=== PATIENT | female | born 1990 | race Caucasian/White ===

== ENCOUNTER 2016-12-10 18:51 | Outpatient (CLI) | payer MEDICAID ==
[~2016-12-10] VITALS: Ht 157.5 cm; Wt 65.7 kg
[~2016-12-10 18:51] MED LIST: ALBU8.5H3 INH; D-ME118S6 PO; PRED20TA PO
[2016-12-10 19:39] VITALS: BP 107/65; PULSE 78; RESP 18
[2016-12-10 19:51] LABS: ADD UMIC YES; URINE BILIRUBIN (Dip) NEGATIVE (NEGATIVE); URINE BLOOD (Dip) NEGATIVE (NEGATIVE); URINE COLOR LT. YELLOW (YELLOW); URINE GLUCOSE (Dip) NEGATIVE (NEGATIVE); URINE KETONES (Dip) TRACE (NEGATIVE); URINE LEUKOCYTE ESTERASE (Dip) TRACE (NEGATIVE); URINE NITRITE (Dip) NEGATIVE (NEGATIVE); URINE TOTAL PROTEIN (Dip) NEGATIVE (NEGATIVE); URINE UROBILINOGEN (Dip) 0.2 E.U./dL (0.1-1.0)
[2016-12-10] MEDS ORDERED: PRENAT PO (19:51)
[2016-12-10 20:00] LABS: SQUAMOUS EPITHELIAL CELL,UR FEW; URINE RBCS 0-2 /HPF (0)
[2016-12-10 20:02] LABS: BACTERIA,URINE OCCASIONAL
[2016-12-10 21:11] LABS: ADD SCAN DIFF NO
[2016-12-10 21:13] LABS: BASOPHIL # 0.1 10^3/ul (0.0-0.1); BASOPHILS % 0.5 % (0.0-2.0); EOSINOPHILS # 0.3 10^3/ul (0.0-0.5); EOSINOPHILS % 2.6 % (0.0-7.0); HEMATOCRIT 34.9 % (37.0-47.0); HEMOGLOBIN 11.8 g/dl (12.0-16.0); LYMPHOCYTES # 2.3 10^3/ul (0.8-2.9); MEAN CORPUSCULAR HEMOGLOBIN 33.1 pg (29.0-33.0); MEAN CORPUSCULAR HGB CONC 33.8 g/dl (32.0-37.0); MEAN PLATELET VOLUME 9.8 fl (7.4-10.4); NEUTROPHIL # 9.1 10^3/ul (1.6-7.5); NEUTROPHILS % 70.5 % (39.0-77.0); PLATELET COUNT 263 10^3/UL (140-415); RED BLOOD COUNT 3.56 10^6/ul (4.20-5.40); RED CELL DISTRIBUTION WIDTH 12.8 % (11.5-14.5); WHITE BLOOD COUNT 12.9 10^3/ul (4.8-10.8)
[2016-12-10 21:27] LABS: ALBUMIN 3.5 g/dl (3.3-4.9); ALBUMIN/GLOBULIN RATIO 1.02; BILIRUBIN,INDIRECT 0.1 mg/dl (0-1.1); BILIRUBIN,TOTAL 0.1 mg/dl (0.2-1.3); CALCIUM 9.5 mg/dl (8.4-10.2); CREATININE 0.48 mg/dl (0.44-1.00); POTASSIUM 3.4 mmol/L (3.5-5.1); TOTAL PROTEIN 6.9 g/dl (6.1-8.1)
--- NOTE | 2016-12-10 21:42 | RADRPT ---
PROCEDURE: US Abdomen. CLINICAL INDICATION: abdominal pain TECHNIQUE: Multiple real-time images were acquired of the patient's right upper quadrant abdomen a nd retroperitoneum utilizing a high resolution transducer. COMPARISON: None FINDINGS: The liver demonstrates normal echogenicity. The liver is normal in size and no focal solid lesions are seen. The liver measures 16.9 cm in length. The portal vein is patent with normal direction of f low. No intrahepatic biliary dilatation is seen. The gallbladder is contracted. No gallstones are identified within the gallbladder. There is no pe richolecystic fluid or gallbladder wall thickening. The common bile duct measures 3 mm in maximal di mension. The visualized portions of the pancreas are unremarkable. The tail of the pancreas is not seen. No free fluid is identified. The right kidney is normal in size, and demonstrate normal echogenicity and cortical thickness. The right kidney measures 11.5 cm in long dimension. There is mild right-sided hydronephrosis. There a re no kidney stones. RPTAT: AA IMPRESSION: Mild right-sided hydronephrosis. Contracted gallbladder with no evidence of gallstones. .Juan Chu MD, MD Date Time Electronically viewed and signed by .Juan Chu MD, MD on 12/10/2016 21:42 .S/
--- NOTE | 2016-12-10 21:48 | RADRPT ---
PROCEDURE: US OB. CLINICAL INDICATION: Low MILTON , pain TECHNIQUE: Transabdominal views of the pelvis are available for review. COMPARISON: No prior studies are available for comparison. FINDINGS: There is a single intrauterine gestation in a vertex position. The heart rate is noted at 137 bpm. The placenta is anterior. The MILTON measures 16.5 cm. RPTAT: AA IMPRESSION: Normal MILTON. .Juan Chu MD, MD Date Time Electronically viewed and signed by .Juan Chu MD, on 12/10/2016 21:48 .S/
--- NOTE | 2016-12-10 22:27 | RADRPT ---
PROCEDURE: US OB limited. Cervical length CLINICAL INDICATION: pain TECHNIQUE: transvaginal views of the pelvis are available for review. COMPARISON: No prior studies are available for comparison. FINDINGS: The cervical length is measured at 4.2 cm. There is minimal fluid within the upper cervical canal, measuring 2 mm. There is otherwise no significant dilation or funneling identified. IMPRESSION: Cervical length measuring 4.2 cm. Trace fluid within the cervical canal, 2 mm. RPTAT: HBST .Michael Evans MD, Date Time Electronically viewed and signed by .Michael Evans MD, on 12/10/2016 22:27 .T/
--- NOTE | 2016-12-11 01:10 | QN ---
Documentation Comment Laborist Dr Garcia's pt 26 y.o. Ect1 with an IUP at 31w5d c/o right upper quadrant pain x 1 day. Pt reports this same pain off and on since she was 5 months . She says she told the provider at the clinic but she has never had an US and was never told not to eat fatty foods. She had a quesadilla in the late afternoon before coming in. No N/V. PMHx: asthma. PSHx: ectopic . POBHx: x 1. NKDA. BP 107/65 T=97.6 Cervical length 4.1cm. MILTON 16.5 VTX. RUQ US: GB was contracted so was difficult to visualize but no gallstones noted. No GB wall thickening and the CBD was normal. WBC 12.9 Hgb 11.8 ALT/AST 22/17 Amylase/Lipase 112/133 U/A negative. NST: baseline 140 bpm with accels to 180 bpm. No decels. No UC's. The pain resolved on it's own after resting and not eating x 5 hours. A: IUP at 31w 5d. RUQ pain. P: D/C pt home. Has an appt at the clinic 12/12. Reviewed the dietary restrictions with pain related to the GB and the importance of a fat-free or low fat diet to minimize GB activity.May benefit from a repeat US after a period of fasting. P: GILLIAN THOMAS MD December 11, 2016 01:09
== END 2016-12-11 01:03 | disposition home or self-care (01) ==
LOC: OBT 18:51 → L-D 18:52 → OBT 12-11 01:03
PROVIDERS: ATTEND Obstetrics & Gynecology
DX: O26.893 Other specified pregnancy related conditions, third trimester (principal); R10.11 Right upper quadrant pain; Z3A.31 31 weeks gestation of pregnancy
CPT/HCPCS: 36415; 76705; 76815; 76817; 80053; 81001; 82150; 83690; 85025; Z7500; 81003; G0463

== ENCOUNTER 2017-02-04 17:14 | Outpatient (CLI) | payer MEDICAID ==
[~2017-02-04] VITALS: Ht 152.4 cm; Wt 67.8 kg
[~2017-02-04 17:14] MED LIST changes: -ALBU8.5H3 INH; -D-ME118S6 PO; -PRED20TA PO; +PRENAT PO
[2017-02-04 17:35] VITALS: Ht 152.4 cm; Wt 67.8 kg
[2017-02-04 17:36] VITALS: BP 111/74; PULSE 73
--- NOTE | 2017-02-04 23:43 | RADRPT ---
PROCEDURE: ULTRASOUND BIOPHYSICAL PROFILE CLINICAL INDICATION: 27-year-old female with contractions for viability. TECHNIQUE: Multiple sonographic images were obtained in order to perform a biophysical profile The images were reviewed on a PACS workstation. COMPARISON: None. FINDINGS: There is a single viable intrauterine gestation. There is a vertex presentation. Cardiac activity i s present at 121 beats per minute. The placenta is anterior. The results of the biophysical profile are as follows: breathing movement = 2/2 Gross body movement = 2/2 tone = 2/2 Qualitative amniotic fluid volume = 2/2 Amniotic fluid index equals 15.2 cm. This yields a biophysical profile score of 8/8. IMPRESSION: Biophysical profile score is 8/8. .Antwon Barron MD, Date Time Electronically viewed and signed by .Antwon Barron MD, MD on 02/04/2017 23:43 .M/
--- NOTE | 2017-02-05 01:48 | PN ---
Triage Information Date/Time Weeks of Gestation 27 Year-old with SIUP at 39 4/7 wks presents with a chief complaint of ucs. She has been receiving her care with Dr. Garcia. She states good movement. She denies nausea, vomiting, shortness of breath, chest pain, headache, visual changes, vaginal bleeding or LOF. Physical Exam: General: Patient appears well, alert and oriented, NAD, appropriate mood and affect ABD: gravid, soft, non-tender. Back: No CVA tenderness (B/L) LE: No clubbing, cyanosis, edema, thigh or calf tenderness bilaterally FHT: 135 bpm , moderate variability with acceleration, no deceleration-category I Contractions: Q 4-6 min. SVE: 2/50/-3/ceph/intact membrane, repeat exam in 3 hrs with no cx changes : 2 Para: 1 Diabetes: none Hypertention: none Objective Vital Signs Date Time Temp Pulse Resp B/P Pulse Ox O2 Delivery O2 Flow Rate FiO2 02/04/17 17:36 98.2 73 111/74 Heart Rate: 130's Contractions: < 5 Minutes Apart Assessment/Plan 27 Year-old with SIUP at 39 4/7 wks presents in false labor. FHR: No sign of metabolic acidosis- Category I. Reactive NST. BPP: 10/10, MILTON of 15.2. - Symptoms and sign of labor, preeclampsia, kick count discussed with patient, she voiced understanding. All of her questions answered. - Patient was discharged home in stable condition with the appropriate discharge instructions provided. I would like patient to have close follow-up with her primary physician. Strongly recommend return to the triage if her ucs are closed or more painful. She states has been sierra for IOL tomorrow ROSIE BEASLEY Feb 05, 2017 01:48
--- NOTE | 2017-02-05 04:33 | TRIAGE ---
OB Triage Datetime Report Generated by CPN: 02/05/2017 04:33 Datetime: 02/05/2017 00:30 Vaginal Exam Dilatation (cms): 2.0 Effacement (%): 50 Station: -3 Exam By: A TEZ RN Vaginal Bleeding: None Cervix, Consistency: Firm Cervix, Position: Posterior Datetime: 02/05/2017 00:00 Labor Evaluation Frequency: 2-5 Monitor Mode: External Duration (sec)2399: 80-120 Quality: Mild Pattern: Normal: <= 5 Contractions in 10 Minutes Resting Tone [place]: Relaxed Heart Rate FHR Baseline Rate: 115 Monitor Mode: External US FHR Baseline Changes: No Baseline Change Variability: Moderate 6-25 bpm Accelerations: 15X15 Decelerations: None Category: Category I Datetime: 02/04/2017 23:08 Comments: MATERNAL HR Datetime: 02/04/2017 23:00 Labor Evaluation Frequency: 0 Monitor Mode: External Heart Rate FHR Baseline Rate: 125 Monitor Mode: External US FHR Baseline Changes: No Baseline Change Variability: Moderate 6-25 bpm Accelerations: 15X15 Decelerations: None Category: Category I Datetime: 02/04/2017 22:00 Labor Evaluation Frequency: IRREGULAR Monitor Mode: External Duration (sec)2399: 100 Duration (sec)2399: 80 Quality: Mild Pattern: Normal: <= 5 Contractions in 10 Minutes Resting Tone [place]: Relaxed Heart Rate FHR Baseline Rate: 120 Monitor Mode: External US FHR Baseline Changes: No Baseline Change Variability: Moderate 6-25 bpm Accelerations: 15X15 Decelerations: None Category: Category I Datetime: 02/04/2017 21:01 Labor Evaluation Frequency: 0 Monitor Mode: External Heart Rate FHR Baseline Rate: 125 Monitor Mode: External US FHR Baseline Changes: No Baseline Change Variability: Moderate 6-25 bpm Accelerations: 15X15 Decelerations: None Category: Category I Datetime: 02/04/2017 20:05 Category: Category II Datetime: 02/04/2017 20:00 Labor Evaluation Frequency: 0 Monitor Mode: External Heart Rate FHR Baseline Rate: 135 Monitor Mode: External US FHR Baseline Changes: No Baseline Change Variability: Moderate 6-25 bpm Accelerations: 15X15 Decelerations: None Category: Category I Datetime: 02/04/2017 19:39 Vaginal Exam Dilatation (cms): 2.0 Effacement (%): 50 Station: -3 Exam By: A TEZ Vaginal Bleeding: None Cervix, Consistency: Firm Cervix, Position: Posterior Datetime: 02/04/2017 19:20 Assessment Type: Triage Maternal Assessment Level of Consciousness: Fully Conscious DTR's/Clonus: DTRs 2+; No Clonus Headache: Denies Blurred Vision: No Respiratory Effort: Unlabored; Regular Rhythm; Equal Expansion Breath Sounds, Left: Clear and Equal Breath Sounds, Right: Clear and Equal Nausea/Vomiting: Denies RUQ Epigastric Pain: Denies Lower Extremities Edema: None Degree: None Upper Extremities Edema: None Degree: None Facial Edema: None Fall Risk Assessment History of Falling: (0) No Secondary Diagnosis: (0) No Ambulatory Aid: (0) Bedrest/Nurse Assist IV Therapy: (0) No Gait: (0) Normal/Bedrest/Immobile Mental Status: (0) Oriented to Own Ability Fall Score: 0 Fall Risk Score Definition: No Risk: No action required Datetime: 02/04/2017 19:17 Pain Assessment Pain Scale: 4 Pain Presence: Intermittent Pain Location: Abdomen Datetime: 02/04/2017 18:08 Stage of : OB Triage Datetime: 02/04/2017 17:29 Stage of : OB Triage Assessment Type: Triage Maternal Assessment Level of Consciousness: Fully Conscious DTR's/Clonus: DTRs 2+; No Clonus Headache: Denies Blurred Vision: No Respiratory Effort: Unlabored; Regular Rhythm; Equal Expansion Breath Sounds, Left: Clear and Equal Breath Sounds, Right: Clear and Equal Nausea/Vomiting: Denies RUQ Epigastric Pain: Denies Facial Edema: None Temperature Route: Axillary Fall Risk Assessment History of Falling: (0) No Secondary Diagnosis: (0) No Ambulatory Aid: (0) Bedrest/Nurse Assist IV Therapy: (0) No Gait: (0) Normal/Bedrest/Immobile Mental Status: (0) Oriented to Own Ability Fall Score: 0 Fall Risk Score Definition: No Risk: No action required Labor Evaluation Frequency: APPLIED Monitor Mode: External Resting Tone [place]: Relaxed Heart Rate FHR Baseline Rate: 125 Monitor Mode: External US Variability: Moderate 6-25 bpm Decelerations: None Category: Category II Pain Assessment Pain Scale: 5 Pain Presence: Intermittent Pain Type: Cramping; Contraction Pain Location: Abdomen Pain Goal: 3 Pain Relief Measures: Comfort Measures Vaginal Exam Dilatation (cms): 1.5 Effacement (%): 50 Station: -3 Exam By: Elvin BRIGIDA Membrane Status: Intact Datetime: 02/04/2017 17:27 Time of Arrival: 02/04/2017 17:15 EGA: 39.4 Arrived By: Ambulatory Arrived From: Home Chief Complaint: C/O UC'S APPROX Q 5 MIN, SM AMT OF BLEEDING, DENIES LEAKING OF FLUID Movement: Present Contractions: Irregular Contractions: 5-10 Rupture of Membranes: Denies Vaginal Bleeding: Scant Vaginal Discharge: Denies Recent Sexual Intercouse: Denies Abdominal Trauma: Not Applicable Patient Complaints: Contractions; Cramping Time Provider Notified: 02/04/2017 20:03 Provider Notified: DR BEASLEY Initial Plan: MONITOR, VE, Datetime: 12/11/2016 00:49 Stage of : OB Triage Monitor Mode: External Quality: Mild Pattern: Normal: <= 5 Contractions in 10 Minutes Resting Tone [place]: Relaxed Heart Rate FHR Baseline Rate: 130 Monitor Mode: External US FHR Baseline Changes: No Baseline Change Variability: Moderate 6-25 bpm Accelerations: 15X15 Decelerations: None Category: Category I Pain Assessment Pain Scale: 0 Pain Presence: None/Denies Pain Type: N/A Datetime: 12/10/2016 23:59 Stage of : OB Triage Monitor Mode: External Quality: Mild Pattern: Normal: <= 5 Contractions in 10 Minutes Resting Tone [place]: Relaxed Heart Rate FHR Baseline Rate: 135 Monitor Mode: External US FHR Baseline Changes: No Baseline Change Variability: Moderate 6-25 bpm Accelerations: 15X15 Pain Assessment Pain Scale: 0 Pain Presence: None/Denies Pain Type: N/A Datetime: 12/10/2016 23:06 Stage of : OB Triage Heart Rate FHR Baseline Rate: 140 Monitor Mode: External US Variability: Moderate 6-25 bpm Datetime: 12/10/2016 22:35 Stage of : OB Triage Monitor Mode: External Quality: Mild Pattern: Normal: <= 5 Contractions in 10 Minutes Resting Tone [place]: Relaxed Heart Rate FHR Baseline Rate: 140 Monitor Mode: External US FHR Baseline Changes: No Baseline Change Variability: Moderate 6-25 bpm Accelerations: 15X15 Decelerations: None Category: Category I Pain Assessment Pain Scale: 8 Pain Presence: Intermittent Pain Type: Pressure; Ache Pain Location: Abdomen Datetime: 12/10/2016 21:57 Heart Rate FHR Baseline Rate: 150 Monitor Mode: External US FHR Baseline Changes: No Baseline Change Datetime: 12/10/2016 20:37 Stage of : OB Triage Quality: Mild Pattern: Normal: <= 5 Contractions in 10 Minutes Resting Tone [place]: Relaxed Heart Rate FHR Baseline Rate: 135 Monitor Mode: External US FHR Baseline Changes: No Baseline Change Variability: Moderate 6-25 bpm Accelerations: 15X15 Decelerations: None Category: Category I Pain Assessment Pain Scale: 8 Pain Presence: Constant Pain Type: Pressure; Ache Pain Location: Abdomen; Back Datetime: 12/10/2016 19:49 Stage of : OB Triage Monitor Mode: External Duration (sec)2399: 10-20sec Quality: Mild Pattern: Normal: <= 5 Contractions in 10 Minutes Resting Tone [place]: Relaxed Heart Rate FHR Baseline Rate: 140 Monitor Mode: External US FHR Baseline Changes: No Baseline Change Variability: Moderate 6-25 bpm Accelerations: 15X15 Decelerations: None Category: Category I Datetime: 12/10/2016 19:30 Time of Arrival: 12/10/2016 18:50 EGA: 31.4 Arrived By: Wheelchair Arrived From: Home Chief Complaint: w/ 1 ectopic w/ c/o rt side abd pain radiating to back off and on since 5 mo nths and constant since yesterday w/ occas LYONS and blurry vision Movement: Present Contractions: Denies/Absent Rupture of Membranes: Denies Vaginal Bleeding: None Vaginal Discharge: Denies Recent Sexual Intercouse: Denies Abdominal Trauma: Not Applicable Patient Complaints: Back Pain; Other Time Provider Notified: 12/10/2016 20:37 Provider Notified: Dr Garcia Initial Plan: EFM Datetime: 12/10/2016 19:21 Maternal Assessment Level of Consciousness: Fully Conscious Headache: Denies Blurred Vision: No Respiratory Effort: Unlabored Nausea/Vomiting: Denies RUQ Epigastric Pain: Denies Facial Edema: None Labor Evaluation Frequency: placed Monitor Mode: External Resting Tone [place]: Relaxed Monitor Mode: External US Comments: FHT 140 Pain Assessment Pain Scale: 8 Pain Presence: Constant Pain Type: Sharp; Ache Pain Location: Abdomen; Back
[2017-02-06] MEDS ORDERED: IBUP-1542 PO (18:00)
== END 2017-02-05 01:00 | disposition home or self-care (01) ==
LOC: OBT 17:14 → L-D 17:14 → OBT 02-05 01:00
PROVIDERS: ATTEND Obstetrics & Gynecology
DX: O47.1 False labor at or after 37 completed weeks of gestation (principal); Z3A.40 40 weeks gestation of pregnancy
CPT/HCPCS: 76818; Z7500; G0463

== ENCOUNTER 2017-02-05 09:00 | Inpatient (IN) | payer MEDICAID ==
[~2017-02-05] VITALS: Ht 152.4 cm; Wt 66.5 kg
[2017-02-05 11:03] VITALS: Ht 152.4 cm; Wt 66.5 kg
[2017-02-05 11:26] VITALS: BP 107/74; PULSE 82; RESP 18
[2017-02-05] MEDS: LACTATED RINGER'S 1,000 ML IV SCH ×2 (11:29→15:54)
[2017-02-05] MEDS ORDERED: MISOPROSTOL 200 MCG TAB PR PRN ×2 (11:30→21:30)
[2017-02-05] MEDS ORDERED: OXYTOCIN 30 UNITS/LR 500 ML IV SCH ×3 (11:30→12:00)
[2017-02-05] MEDS ORDERED: OXYTOCIN 30 UNITS/LR 500 ML IV PRN ×2 (11:30→21:30)
[2017-02-05] MEDS ORDERED: LIDOCAINE 1% (MPF) 30 ML INJ INJ PRN (11:30)
[2017-02-05] MEDS ORDERED: IBUPROFEN 600 MG TAB PO PRN (11:30)
[2017-02-05] MEDS ORDERED: CARBOPROST 250 MCG INJ IM PRN ×2 (11:30→21:30)
[2017-02-05] MEDS ORDERED: BUTORPHANOL 2 MG INJ IV PRN (11:30)
[2017-02-05] MEDS ORDERED: METHYLERGONOVINE 0.2 MG INJ IM PRN ×2 (11:30→21:30)
[2017-02-05 11:44] LABS: ADD SCAN DIFF NO
[2017-02-05 11:47] LABS: BASOPHIL # 0.1 10^3/ul (0.0-0.1); BASOPHILS % 0.6 % (0.0-2.0); EOSINOPHILS # 0.3 10^3/ul (0.0-0.5); EOSINOPHILS % 2.6 % (0.0-7.0); HEMATOCRIT 36.6 % (37.0-47.0); HEMOGLOBIN 12.3 g/dl (12.0-16.0); LYMPHOCYTES # 2.1 10^3/ul (0.8-2.9); LYMPHOCYTES % 20.6 % (15.0-51.0); MEAN CORPUSCULAR HEMOGLOBIN 32.6 pg (29.0-33.0); MEAN CORPUSCULAR HGB CONC 33.6 g/dl (32.0-37.0); MEAN CORPUSCULAR VOLUME 97.1 fl (82.0-101.0); MEAN PLATELET VOLUME 10.6 fl (7.4-10.4); MONOCYTE # 0.8 10^3/ul (0.3-0.9); MONOCYTES % 7.5 % (0.0-11.0); NEUTROPHIL # 6.8 10^3/ul (1.6-7.5); NEUTROPHILS % 68.2 % (39.0-77.0); PLATELET COUNT 266 10^3/UL (140-415); RED BLOOD COUNT 3.77 10^6/ul (4.20-5.40); RED CELL DISTRIBUTION WIDTH 13.4 % (11.5-14.5)
[2017-02-05 12:19] LABS: INR 0.9; PROTIME 12.1 Sec (12.2-14.2); PT RATIO 0.9
[2017-02-05 12:51] LABS: PARTIAL THROMBOPLASTIN TIME 24.7 Sec (25.0-35.0)
[2017-02-05] MEDS ORDERED: FENTAnyl 2MCG/ML-ROPIV 0.2% 100 ML ONE (14:34)
[2017-02-05] MEDS ORDERED: ONDANSETRON 4 MG INJ IV PRN (15:00)
[2017-02-05] MEDS ORDERED: PROCHLORPERAZINE 10 MG INJ IV PRN (15:00)
[2017-02-05] MEDS ORDERED: KETOROLAC 30 MG INJ IV PRN (15:00)
[2017-02-05] MEDS ORDERED: NALOXONE (0.4 MG/ML) INJ IV PRN (15:00)
[2017-02-05] MEDS ORDERED: HYDROmorphONE 1 MG/ML SYG IV PRN ×2 (15:00)
[2017-02-05] MEDS ORDERED: DIPHENHYDRAMINE 50 MG INJ IV PRN (15:00)
[2017-02-05] MEDS ORDERED: FENTAnyl 2MCG/ML-ROPIV 0.2% 100 ML BAG EPI SCH (15:00)
[2017-02-05] MEDS ORDERED: MINERAL OIL LIGHT 10 ML VIAL TOP ONE (18:30)
--- NOTE | 2017-02-05 19:12 | HP ---
Date/Time of Note Date/Time of Note DATE: 02/05/17 TIME: 19:09 OB - History Hx of Present Free Text/Dictation admitted for labor augmentation at term Last Menstrual Period: May 12, 2016 Estimated Due Date: Feb 07, 2017 : 2 Para: 1 Care: Good Care Ultrasounds: Normal mid trimester US Obstetrical Complications: None Medical Complications: None Past Family/Social History * Past Medical, Surgical, Family and Obstetric Histories reviewed from chart. Blood Type: O+ Rubella: immune RPR/VDRL: Negative GBS Status: Negative HBsAG: Negative OB Admission Exam Vital Signs Vital Signs Vital Signs Date Time Temp Pulse Resp B/P Pulse Ox O2 Delivery O2 Flow Rate FiO2 02/05/17 11:26 98.7 82 18 107/74 Room Air Physical Exam HEENT: WNL Heart: Rhythm Normal Lungs: Clear, Equal Abdomen: WNL Extremities: Normal Reflexes: Normal Cervical Dilatation: 3cm Effacement: 50% Station: -3 Membranes: Intact Heart Rate: 140's Accelerations: Accelerations Present Decelerations: No Decelerations Varibility: Marked Contractions on Admission: None Last 72 hours Lab Results CBC & BMP 02/05/17 11:15 OB Assessment/Plan Reason for admission: induction of labor Other Assessment: term gestation for induction of the labor Induction Method: per Pitocin Protocol MENDEZ HOPKINS MD Feb 05, 2017 19:12
--- NOTE | 2017-02-05 19:15 | LDN ---
Date/Time of Note Date/Time of Note DATE: 02/05/17 TIME: 19:12 Delivery Summary of a viable infant over intact pardinum Weeks of Gestation 39 Placenta Delivered: Spontaneously, Intact & Complete Meconium: none Episiotomy: No Perineal laceration: 0 Anesthesia type: Epidural Estimated blood loss: 300 Sponge & Needle done & correct: Yes All needle counts correct: Yes Any foreign bodies felt in the: No Problems: Infant Delivery Information Sex Sex: female Apgars 1 Minute: 8 5 Minute: 9 Suctioning Nose & mouth suctioned at stephon: Yes Delee suction performed: No Umbilical Cord Umbilical cord with: 3 Vessels Cord presentations: nuchal cord Nuchal cord present X: 1 Cord Blood was obtained: Yes Mother & Baby Disposition Disposition Mom & Baby to Maternity; Good: Yes (mother and baby were recovered in goog condition ) Mom transferred to: Other (maternity ) Baby to NICU: No MENDEZ HOPKINS MD Feb 05, 2017 19:15
[2017-02-05 21:00] VITALS: BP 121/76; PULSE 70; RESP 20
[2017-02-05] MEDS ORDERED: LACTATED RINGER'S 1,000 ML IV PRN (21:00)
[2017-02-05] MEDS ORDERED: LACTATED RINGER'S 1,000 ML IV* SCH (21:15)
[2017-02-05] MEDS ORDERED: BENZOCAINE 20% 56 ML SPRAY TOP PRN (21:30)
[2017-02-05] MEDS ORDERED: WITCH HAZEL/GLYCERIN PAD PR PRN (21:30)
[2017-02-05] MEDS ORDERED: DIBUCAINE 1% 30 GM OINT PR PRN (21:30)
[2017-02-05] MEDS ORDERED: ACETAMINOPHEN/CODEINE #3 TAB PO PRN ×2 (21:30)
[2017-02-05] MEDS ORDERED: ZOLPIDEM 5 MG TAB PO PRN (21:30)
[2017-02-05] MEDS ORDERED: LANOLIN 7 GM TUBE TOP PRN (21:30)
[2017-02-05] MEDS: CEPHALEXIN 500 MG CAP PO SCH (23:42)
[2017-02-05] MEDS: IBUPROFEN 600 MG TAB PO SCH (23:42)
[2017-02-06] VITALS: BP 113/78; PULSE 69; RESP 20
[2017-02-06] MEDS ORDERED: ALBUTEROL 18 GM INHALER INH PRN
[2017-02-06 04:00] VITALS: BP 92/56; PULSE 74; RESP 18
[2017-02-06] MEDS: IBUPROFEN 600 MG TAB PO SCH ×4 (05:51→23:32)
[2017-02-06] MEDS: CEPHALEXIN 500 MG CAP PO SCH ×4 (05:51→23:32)
[2017-02-06 08:07] VITALS: BP 103/56; PULSE 62; RESP 18
[2017-02-06 08:24] LABS: ADD SCAN DIFF NO
[2017-02-06 08:35] LABS: BASOPHIL # 0.1 10^3/ul (0.0-0.1); BASOPHILS % 0.5 % (0.0-2.0); EOSINOPHILS # 0.3 10^3/ul (0.0-0.5); EOSINOPHILS % 1.8 % (0.0-7.0); HEMATOCRIT 34.2 % (37.0-47.0); HEMOGLOBIN 11.6 g/dl (12.0-16.0); LYMPHOCYTES # 2.7 10^3/ul (0.8-2.9); LYMPHOCYTES % 18.3 % (15.0-51.0); MEAN CORPUSCULAR HEMOGLOBIN 33.1 pg (29.0-33.0); MEAN CORPUSCULAR HGB CONC 33.9 g/dl (32.0-37.0); MEAN CORPUSCULAR VOLUME 97.7 fl (82.0-101.0); MEAN PLATELET VOLUME 10.4 fl (7.4-10.4); MONOCYTE # 1.2 10^3/ul (0.3-0.9); MONOCYTES % 8.1 % (0.0-11.0); NEUTROPHIL # 10.4 10^3/ul (1.6-7.5); NEUTROPHILS % 70.6 % (39.0-77.0); PLATELET COUNT 214 10^3/UL (140-415); RED CELL DISTRIBUTION WIDTH 13.2 % (11.5-14.5); WHITE BLOOD COUNT 14.7 10^3/ul (4.8-10.8)
[2017-02-06] MEDS: SENNA/DOCUSATE NA (8.6MG/50MG) TAB PO SCH ×2 (09:47→21:12)
[2017-02-06] MEDS: MAGNESIUM HYDROXIDE 30ML CUP PO SCH ×2 (09:47→21:12)
[2017-02-06 12:30] VITALS: BP 91/60; PULSE 88; RESP 18
[2017-02-06 16:00] VITALS: BP 121/77; RESP 18
[2017-02-06] MEDS ORDERED: ACETAMINOPHEN/CODEINE #3 TAB PO PRN (17:00)
--- NOTE | 2017-02-06 17:50 | DS ---
Date/Time of Note Date/Time of Note home next day DATE: 02/06/17 TIME: 17:48 Obstetrical Discharge Record Final Diagnosis Final Diagnosis: Term delivered Other Final Diagnosis S/P vaginal delivery Vaginal Delivery Obstetrical Delivery: Spontaneous Complications Augmentation: Yes Condition on Discharge Physical Assessment Last Vitals: see nurses notes Voiding: Yes Bowel Movement: Yes Breast: Soft, non-tender, Filling Fundus: Firm Abdomen and Incision: soft bs + Episiotomy: NA Calf Tenderness: No Patient Condition: Good MENDEZ HOPKINS MD Feb 06, 2017 17:50
--- NOTE | 2017-02-06 17:57 | PD.PPDC ---
[facility] [employer] Discharge Instruction Provider Information Physician Information 26 y/o female had vaginal delivery Diagnosis Final Diagnosis: S/P vaginal delivery Condition Patient Condition: Good Diet Diet: Resume Regular Diet Activity/Restrictions Activity: Normal Activity May Shower Restrictions: Nothing in the Vagina Return to Work or School: Mar 25, 2017 Follow-up Follow-up with Physician: 4, Week/Weeks (in clinic ) Return to clinic for OB Instructions: Breast Tenderness Depression MENDEZ HOPKINS MD Feb 06, 2017 17:57
[2017-02-06] MEDS ORDERED: IBUP-1542 PO (18:00)
[2017-02-06 20:00] VITALS: BP 115/79; PULSE 74; RESP 20
[2017-02-07 04:00] VITALS: BP 120/66; PULSE 60; RESP 20
[2017-02-07] MEDS: IBUPROFEN 600 MG TAB PO SCH ×3 (05:30→17:52)
[2017-02-07] MEDS: CEPHALEXIN 500 MG CAP PO SCH ×3 (05:30→18:39)
[2017-02-07 08:30] VITALS: BP 117/73; PULSE 67; RESP 18
[2017-02-07] MEDS ORDERED: VARICELLA VACCINE LIVE/PF 1,350 UNIT/0.5 ML ML SC* ONE (09:00)
[2017-02-07] MEDS ORDERED: MEASLES,MUMPS,RUBELLA VACCINE INJ SC* ONE (09:00)
[2017-02-07] MEDS ORDERED: DIPHTH/TET/ACEL PERTUSS (ADULT) 0.5 ML VIAL IM* ONE (09:00)
[2017-02-07] MEDS: MAGNESIUM HYDROXIDE 30ML CUP PO SCH (10:19)
[2017-02-07] MEDS: SENNA/DOCUSATE NA (8.6MG/50MG) TAB PO SCH (10:19)
[2017-02-07 16:00] VITALS: BP 116/69; PULSE 53; RESP 18
== END 2017-02-07 19:00 | disposition home or self-care (01) | DRG 775 ==
LOC: L-D 10:01 → PP1 20:59
PROVIDERS: ADMIT Obstetrics & Gynecology; ATTEND Obstetrics & Gynecology
PROC: 10E0XZZ Delivery of Products of Conception, External Approach (ICD-10-PCS; principal; 2017-02-06)
PROC: 3E033VJ Introduction of Other Hormone into Peripheral Vein, Percutaneous Approach (ICD-10-PCS; 2017-02-06)
DX: O69.81X0 Labor and delivery complicated by cord around neck, without compression, not applicable or unspecified (principal); Z37.0 Single live birth; Z3A.39 39 weeks gestation of pregnancy
CPT/HCPCS: 62319; 85025; 85610; 85730; 86592; 86900; 86901; 87340; 90715; 90716; 94760; 99464; J2590; J3010; J7120

== ENCOUNTER 2018-12-09 08:55 | Emergency (ER) | payer MEDICAID ==
[~2018-12-09] VITALS: Ht 162.6 cm; Wt 62.7 kg
[~2018-12-09 08:55] MED LIST changes: +IBUP-1542 PO
[2018-12-09 09:10] VITALS: BP 168/83; PULSE 89; RESP 18; Ht 162.6 cm; Wt 62.7 kg
[2018-12-09] MEDS ORDERED: ERYTHROMYCIN 1 GM OPH OINT BOTH EYES ONE (10:00)
[2018-12-09] MEDS ORDERED: ERYT1OIN6 BOTH EYES (10:07)
--- NOTE | 2018-12-09 13:33 | ERD ---
ER Documentation Chief Complaint Chief Complaint eye redness and discharge x 2 days HPI History of Present Illness: 28-year-old female who denies any past medical history coming in today with complaint of bilateral eye redness, discharge, itching. Patient reports symptoms started approximately 2 days ago and have w orsened over the past 2 days with increasing itching and redness. Patient denies any sick contacts or anyone else with similar symptoms. Patient denies any obvious symptoms. Patient denies any changes in vision. Patient denies any pain with movement of eyes. At home pharmacological/nonpharmacological treatment for symptoms: Denies social concerns; Denies recent foreign travel ROS All systems reviewed and are negative except as per history of present illness. Medications Home Meds Active Scripts Erythromycin Base (Erythromycin) 1 Gm Oint...g., 1 APPLIC BOTH EYES QID for EYE INFECTION for 7 Days Prov:DEEPIKA PERRY NP 12/09/18 Ibuprofen* (Ibuprofen*) 600 Mg Tablet, 600 MG PO Q6, #30 TAB 0 Refills Prov:MENDEZ HOPKINS MD 02/06/17 Reported Medications Multivit/Min/Fol Ac/Iron/Pren* ( S*) 1 Tab Tab, 1 TAB PO DAILY, TAB 12/10/16 Allergies Allergies: Coded Allergies: No Known Drug Allergy (Verified Allergy, Mild, 01/01/14) PMhx/Soc History of Surgery: No Anesthesia Reaction: No Hx Neurological Disorder: No Hx Respiratory Disorders: Yes (ASTHMA) Hx Cardiac Disorders: Yes (low blood pressure) Hx Psychiatric Problems: No Hx Miscellaneous Medical Probl: No Hx Alcohol Use: No Hx Substance Use: No Hx Tobacco Use: No FmHx Family History: No diabetes, No coronary disease Physical Exam Vitals Vital Signs Date Temp Pulse Resp B/P (MAP) Pulse Ox O2 O2 Flow FiO2 Time Delivery Rate 12/09/18 98.1 89 18 168/83 98 09:10 (111) Physical Exam Const: No acute distress Head: Atraumatic Eyes: Reddened conjunctiva, injected sclera, yellow drainage to inner corners of eyes ENT: Normal External Ears, Nose and Mouth. Neck: Full range of motion. No meningismus. Resp: Clear to auscultation bilaterally Cardio: Regular rate and rhythm, no murmurs Abd: Soft, non tender, non distended. Normal bowel sounds Skin: No petechiae or rashes Back: No midline or flank tenderness Ext: No cyanosis, or edema Neur: Awake and alert Psych: Normal Mood and Affect Results 24 hrs Current Medications Medications Dose Sig/Leroy Start Time Status Last (Trade) Ordered Route PRN Stop Time Admin Dose Reason Admin 1 applic ONCE ONCE 12/09/18 DC 12/09/18 Erythromycin BOTH EYES 10:00 09:52 12/09/18 10:01 (Erythromycin Oph Oint) Procedures/MDM ED course includes a thorough examination and history. ED course includes visual acuity testing. Medications: Erythromycin ointment Imaging: - Labs: - Low suspicion for life-threatening medical emergency. Low suspicion for ophthalmologic emergency that requires hospitalization or immediate surgical intervention. Patient visual acuity is not within normal limits, the patient reports no changes in vision noted. Otherwise healthy patient presenting with constellation of symptoms likely representing uncomplicated bacterial conjunctivitis as characterized by history, physical exam findings. No respiratory distress, otherwise relatively well appearing and nontoxic. Patient educated on diagnoses, prescriptions, follow-up care, return precautions. Strict return precautions given for worsening condition; questions answered discharge. Disposition for discharge with followup in 2 days with PCP/clinic. Departure Diagnosis: Primary Impression: Conjunctivitis, both eyes Conjunctivitis type: acute Acute conjunctivitis type: bacterial Qualified Codes: H10.33 - Unspecified acute conjunctivitis, bilateral Condition: Stable Patient Instructions: Conjunctivitis, Bacterial Referrals: COMMUNITY CLINICS YOU HAVE RECEIVED A MEDICAL SCREENING EXAM AND THE RESULTS INDICATE THAT YOU DO NOT HAVE A CONDITION THAT REQUIRES URGENT TREATMENT IN THE EMERGENCY DEPARTMENT. FURTHER EVALUATION AND TREATMENT OF YOUR CONDITION CAN WAIT UNTIL YOU ARE SEEN IN YOUR DOCTORS OFFICE WITHIN THE NEXT 1-2 DAYS. IT IS YOUR RESPONSIBILITY TO MAKE AN APPOINTMENT FOR FOLOW-UP CARE. IF YOU HAVE A PRIMARY DOCTOR --you should call your primary doctor and schedule an appointment IF YOU DO NOT HAVE A PRIMARY DOCTOR YOU CAN CALL OUR PHYSICIAN REFERRAL HOTLINE AT IF YOU CAN NOT AFFORD TO SEE A PHYSICIAN YOU CAN CHOSE FROM THE FOLLOWING CO [facility] [address] [facility] [address] [email or web address] [address] [facility] [address] [facility]. [facility] [address] [facility]. [facility]. [address] [facility]. [facility] YOU HAVE RECEIVED A MEDICAL SCREENING EXAM AND THE RESULTS INDICATE THAT YOU DO NOT HAVE A CONDITION THAT REQUIRES URGENT TREATMENT IN THE EMERGENCY DEPARTMENT. FURTHER EVALUATION AND TREATMENT OF YOUR CONDITION CAN WAIT UNTIL YOU ARE SEEN IN YOUR DOCTORS OFFICE WITHIN THE NEXT 1-2 DAYS. IT IS YOUR RESPONSIBILITY TO MAKE AN APPOINTMENT FOR FOLOW-UP CARE. IF YOU HAVE A PRIMARY DOCTOR --you should call your primary doctor and schedule and appointment IF YOU DO NOT HAVE A PRIMARY DOCTOR YOU CAN CALL OUR PHYSICIAN REFERRAL HOTLINE AT . IF YOU CAN NOT AFFORD TO SEE A PHYSICIAN YOU CAN CHOSE FROM THE FOLLOWING [facility] INSTITUTIONS: [facility] [address] [place] [address] [address] [place] [address] [facility] [address] [place] [address] Additional Instructions: Marrero shmuel y seguridad es nuestra principal prioridad en [facility]. Es importante leer todas las instrucciones de luisa y la educacin que se proporcionan en marrero paquete de luisa. * La infeccin ocular que tienes es contagiosa y puede transmitirse a otras personas. Trate de no tocar los ojos y tocar otros objetos con los que otras personas puedan entrar en contacto. * Llame a marrero mdico de atencin primaria MAANA para kathie eddi rod los prximos 2 a 4 dyson y lleve toda la informacin y los medicamentos recetados. Llene las recetas y siga exactamente las instrucciones de la etiqueta. -La pomada de eritromicina es un antibitico para el tratamiento de infecciones oculares; tome curt medicamento agnes se indica en marrero receta. Debe completar todo el curso de tratamiento que figura en marrero receta. [place] es muy importante porque se necesitan varios dyson para eliminar las bacterias que causan la infeccin. Si los sntomas empeoran y marrero proveedor no est disponible, regrese inmediatamente al Departamento de Emergencias. --- Thank you very much for allowing us to participate in your care. Your health and safety is our top priority at [facility]. It is important to read all discharge instructions and education provided in your discharge packet. *The eye infection that you have is contagious and can be passed to other people. Try not to touch eyes and touch other objects that other people may come in contact with.* Call your primary care doctor TOMORROW for an appointment during the next 2-4 days and bring all the information and medications prescribed. Have prescriptions filled and follow precisely the directions on the label. -Erythromycin ointment is an antibiotic for treatment of eye infection; take this medication as listed on your prescription. You must complete the entire course of treatment that is listed on your prescription this is very important because it takes a certain number of days to kill the bacteria that is causing the infection. If the symptoms get worse and your provider is unavailable, return to the Emergency Department immediately. DEEPIKA PERRY NP Dec 09, 2018 13:33
== END 2018-12-09 10:29 | disposition home or self-care (01) ==
LOC: FTE 08:55
DX: H10.33 Unspecified acute conjunctivitis, bilateral (principal); J45.909 Unspecified asthma, uncomplicated
CPT/HCPCS: 99283